=== PATIENT | female | born 1985 | race Caucasian/White ===

== ENCOUNTER 2019-06-13 17:08 | Emergency (ER) | payer OTHER ==
[~2019-06-13] VITALS: Ht 172.7 cm; Wt 113.4 kg
[~2019-06-13 17:08] MED LIST: ALBUTEROL INH; AMERICAINE VAG; ATIVAN0.5 MG PO; AZITHROMYCIN 2250 MG PO; BACTRIM DS TAB1 EACH PO; BENADRYL25 MG PO; CIPRO250 M1 PO; CIPROFLOXACIN500 M1 PO; CLEOCIN HCL150 MG PO; COMPAZINE10 MG; DIAZEPAM 10 MG10 M1 PO; DOXYCYCLINE 10100 MG PO; ELAVIL; ERY-TAB333 MG PO; FLONASE16 GM NS; HYDROCODONE-AP1 EAC6 PO; HYDROCODONE-APA15 ML PO; IBUPROFEN; IBUPROFEN 800800 M1 PO; IBUPROFEN 800800 MG PO; INDAPAMIDE2.5 MG PO; IRON159 MG; KEFLEX500 MG PO; LATUDA40 MG PO; LISINOPRIL10 MG PO; LORATIDINE 10 M10 M1 PO; MACROBID 100 M100 M1 PO; MEDROL DOSPAK21 TAB PO; MS CONTIN15 MG; NEURONTIN 300300 M1; NOHOMEMEDICATIONS; NORCO 5-325 TA1 EACH PO; NORFLEX100 MG PO; OXTELLAR XR600 MG PO; OXYCODONE HCL E10 MG; PERCOCET 10-321 EACH PO; PHENERGAN 25 MG25 M1; PHENERGAN-CODE120 ML PO; PRENATAL; PROMS25 WY RECTAL; PROVENTIL HFA6.7 G1 INH; PROVENTIL17 G1 IH; RISPERDAL 1 MG T1 MG PO; ROBAXIN 750 MG750 M1 PO; TERAZOL 320 GM VAG; TESSALON200 MG PO; TRAMADOL 50 MG50 MG PO; TUSSIONEX PENN473 ML PO; UNKNOWN BP MED; VISTARIL 25 MG25 M1 PO; WELLBUTRIN SR150 MG PO; ZANAFLEX4 M2; ZOLOFT; ZPAK PO
[2019-06-13] MEDS ORDERED: OXYBUTYNIN 5 MG5 M2 PO (17:39)
[2019-06-13] MEDS ORDERED: ZANAFLEX4 MG PO (17:39)
[2019-06-13] MEDS ORDERED: VICODIN 5-3001 EACH PO (17:39)
[2019-06-13] MEDS ORDERED: ALDACTONE100 MG PO (17:40)
[2019-06-13] MEDS ORDERED: CIPRODEX OTIC7.5 ML OTIC (18:29)
[2019-06-13] MEDS ORDERED: CLEOCIN HCL300 MG PO (18:29)
[2019-06-13 18:37] VITALS: BP 162/99
== END 2019-06-13 18:41 | disposition home or self-care (01) ==
LOC: M.ERS 17:08
DX: H66.91 Otitis media, unspecified, right ear (principal); H60.91 Unspecified otitis externa, right ear; J45.909 Unspecified asthma, uncomplicated; I10 Essential (primary) hypertension; F31.9 Bipolar disorder, unspecified; F17.210 Nicotine dependence, cigarettes, uncomplicated; Z98.51 Tubal ligation status; Z88.0 Allergy status to penicillin; Z88.1 Allergy status to other antibiotic agents

== ENCOUNTER 2019-07-03 21:55 | Emergency (ER) | payer OTHER ==
[~2019-07-03] VITALS: Ht 172.7 cm; Wt 113.8 kg
[~2019-07-03 21:55] MED LIST changes: +ALDACTONE100 MG PO; +CIPRODEX OTIC7.5 ML OTIC; +CLEOCIN HCL300 MG PO; +OXYBUTYNIN 5 MG5 M2 PO; +VICODIN 5-3001 EACH PO; +ZANAFLEX4 MG PO
[2019-07-03] MEDS ORDERED: SKLICE117 GM TOP (22:33)
[2019-07-03] MEDS ORDERED: NIX59 ML TOP (22:40)
[2019-07-03 22:49] VITALS: BP 138/87
== END 2019-07-03 22:50 | disposition home or self-care (01) ==
LOC: M.ERS 21:55
DX: B85.0 Pediculosis due to Pediculus humanus capitis (principal); I10 Essential (primary) hypertension; J45.909 Unspecified asthma, uncomplicated; F31.9 Bipolar disorder, unspecified; F17.210 Nicotine dependence, cigarettes, uncomplicated; Z98.2 Presence of cerebrospinal fluid drainage device; Z86.011 Personal history of benign neoplasm of the brain; Z88.0 Allergy status to penicillin; Z88.1 Allergy status to other antibiotic agents

== ENCOUNTER 2019-08-03 19:04 | Emergency (ER) | payer OTHER ==
[~2019-08-03] VITALS: Ht 172.7 cm; Wt 113.4 kg
[~2019-08-03 19:04] MED LIST changes: +NIX59 ML TOP; +SKLICE117 GM TOP
[2019-08-03] MEDS ORDERED: AZITHROMYCIN 2250 MG PO (20:05)
[2019-08-03] MEDS ORDERED: PREDNISONE 20 M20 MG PO (20:05)
[2019-08-03] MEDS ORDERED: PROAIR HFA8.5 GM INH (20:05)
[2019-08-03 21:10] VITALS: BP 116/59
== END 2019-08-03 21:11 | disposition home or self-care (01) ==
LOC: M.ERS 19:04
DX: J45.901 Unspecified asthma with (acute) exacerbation (principal); R51 Headache; G93.2 Benign intracranial hypertension; I10 Essential (primary) hypertension; F31.9 Bipolar disorder, unspecified; F17.210 Nicotine dependence, cigarettes, uncomplicated; Z98.51 Tubal ligation status; Z88.0 Allergy status to penicillin; Z88.1 Allergy status to other antibiotic agents

== ENCOUNTER 2020-01-19 22:47 | Emergency (ER) | payer OTHER ==
[~2020-01-19] VITALS: Ht 172.7 cm; Wt 113.4 kg
[~2020-01-19 22:47] MED LIST changes: +PREDNISONE 20 M20 MG PO; +PROAIR HFA8.5 GM INH
[2020-01-20 00:17] LABS: INFLUENZA A ANTIGEN Negative (Negative); INFLUENZA B ANTIGEN Negative (Negative)
[2020-01-20 00:40] VITALS: BP 163/84
== END 2020-01-20 00:40 | disposition home or self-care (01) ==
LOC: M.ERS 22:47
PROVIDERS: Emergency Medicine Emergency Medical Services
DX: J06.9 Acute upper respiratory infection, unspecified (principal); F17.210 Nicotine dependence, cigarettes, uncomplicated; I10 Essential (primary) hypertension; F31.9 Bipolar disorder, unspecified; J45.909 Unspecified asthma, uncomplicated; Z98.51 Tubal ligation status; Z88.0 Allergy status to penicillin; Z88.1 Allergy status to other antibiotic agents; Z79.899 Other long term (current) drug therapy

== ENCOUNTER 2020-08-29 20:06 | Emergency (ER) | payer OTHER ==
[~2020-08-29] VITALS: Ht 172.7 cm; Wt 108.9 kg
[2020-08-29] MEDS ORDERED: DULOXETINE HCL20 MG PO (20:14)
[2020-08-29 22:37] VITALS: BP 132/70
== END 2020-08-29 22:37 | disposition home or self-care (01) ==
LOC: M.ERS 20:06
DX: S00.12XA Contusion of left eyelid and periocular area, initial encounter (principal); S40.022A Contusion of left upper arm, initial encounter; S40.021A Contusion of right upper arm, initial encounter; S40.011A Contusion of right shoulder, initial encounter; J45.909 Unspecified asthma, uncomplicated; I10 Essential (primary) hypertension; F17.210 Nicotine dependence, cigarettes, uncomplicated; Z88.0 Allergy status to penicillin; Z88.1 Allergy status to other antibiotic agents; Z98.51 Tubal ligation status; Y08.89XA Assault by other specified means, initial encounter; Y93.89 Activity, other specified; Y92.89 Other specified places as the place of occurrence of the external cause; Y99.8 Other external cause status

== ENCOUNTER 2020-09-06 00:47 | Emergency (ER) | payer OTHER ==
[~2020-09-06] VITALS: Ht 172.7 cm; Wt 140.2 kg
[~2020-09-06 00:47] MED LIST changes: +DULOXETINE HCL20 MG PO
[2020-09-06] MEDS ORDERED: HYDROCODON-ACE1 EA11 PO (00:59)
[2020-09-06 01:16] LABS: ABSOLUTE BASOPHILS 0.1 thou/uL (0.0-0.2); ABSOLUTE EOSINOPHILS 0.2 thou/uL (0.0-0.7); ABSOLUTE LYMPHOCYTES 1.7 thou/uL (0.8-5.3); ABSOLUTE MONOCYTES 0.4 thou/uL (0.0-1.2); ABSOLUTE NEUTROPHILS 4.7 thou/uL (1.6-8.1); BASOPHILS 0.8 %; EOSINOPHILS 2.6 %; HEMATOCRIT 23.2 % (37.0-47.0); HEMOGLOBIN 7.1 gm/dL (12.0-15.0); LYMPHOCYTES 24.4 %; MCH 17.7 pg (26.0-34.0); MCHC 30.4 g/dL (28.0-37.0); MCV 58.2 fL (80.0-100.0); MONOCYTES 5.9 %; MPV 8.1 fl. (7.2-11.1); NUCLEATED RBCS 0 /100WBC; PLATELET COUNT* 343 thou/uL (150-400); POLYS 66.3 %; RBC 3.99 mil/uL (4.20-5.00); RDW-CV 19.2 % (10.5-14.5); WBC 7.1 thou/uL (4.0-11.0)
[2020-09-06 01:24] LABS: CALCIUM 8.4 mg/dL (8.5-10.1); CREATININE 0.9 mg/dL (0.6-1.3); POTASSIUM 3.4 mmol/L (3.5-5.1)
[2020-09-06 01:29] LABS: TOTAL BILIRUBIN 0.1 mg/dL (<0.1-1.0); TOTAL PROTEIN 6.7 g/dL (6.4-8.2)
[2020-09-06] MEDS ORDERED: LEVAQUIN 500 M500 MG PO (02:13)
[2020-09-06 02:23] VITALS: BP 148/79
[2020-09-06 03:28] LABS: ANISOCYTOSIS 1+; HYPOCHROMASIA 2+; MICROCYTES 3+; PLATELET ESTIMATE ADEQUATE
== END 2020-09-06 02:23 | disposition home or self-care (01) ==
LOC: M.ERS 00:47
PROVIDERS: Family Medicine
DX: S00.93XA Contusion of unspecified part of head, initial encounter (principal); D64.9 Anemia, unspecified; H70.92 Unspecified mastoiditis, left ear; I10 Essential (primary) hypertension; J45.909 Unspecified asthma, uncomplicated; F17.210 Nicotine dependence, cigarettes, uncomplicated; Z79.899 Other long term (current) drug therapy; Z88.0 Allergy status to penicillin; Z88.1 Allergy status to other antibiotic agents; Y08.89XA Assault by other specified means, initial encounter; Y93.89 Activity, other specified; Y92.89 Other specified places as the place of occurrence of the external cause; Y99.8 Other external cause status

== ENCOUNTER 2020-09-18 19:26 | Inpatient (IN) | payer OTHER ==
[~2020-09-18] VITALS: Ht 172.7 cm; Wt 113.4 kg
--- NOTE | ~2020-09-18 | EMS ---
[facility] [address] [place] [address] EMS Patient Care Report Name: STEPHANIE LONGO Room: [facility]#: [id number] Admission: 09/18/20 Attend Phys: Discharge: Date of : 81 Report #: [id number] THIS REPORT FOR: //name// Report Transmitted: 09/18/2020 19:39 EMS Care Summary [place] [facility] Incident 20-0911 @ 09/18/2020 18:40 Incident Location [address] [place] [address] Patient STEPHANIE LONGO Female, 34 Years 1985 Patient Address [address] [place] [address] Patient History Asthma, Patient Allergies No known allergies, Patient Medications Albuterol, Chief Complaint SOB Disposition Transported No Lights/[facility] [place] [facility] Reason Breathing Problem Transported To [facility] Narrative Dispatched for 34y/o female with SOB. Upon arrival pt. was sitting upright, acting anxious, and speaking in full sentences. [place] [address] EMS Patient Care Report Name: STEPHANIE LONGO Room: [facility]#: [id number] Admission: 09/18/20 Attend Phys: Discharge: Date of : 81 Report #: [id number] of asthma and has had SOB for the past 4 days with little relief from her MDI. Pt. requested to be transported to a hospital. Pt. had expiratory wheezes in all marquis. En route Pt. stated that the Duoneb gave her some relief. Pt. was transported to [facility] for emergency and respiratory services. Initial Vitals @19:10P: 100,R: 24,BP: 136/88,SpO2: 100, @18:55P: 110,R: 24,BP: 128/86,Pain: 0/10,GCS: 15,SpO2: 98,Revised Trauma: 12, Assessments @18:50MENTAL:No Abnormalities,SKIN:No Abnormalities,HEENT:Head/Face: No Abnormalities,Eyes: No Abnormalities,Neck/Airway: No Abnormalities,LUNG SOUNDS:General: No Abnormalities,Left Upper: No Abnormalities,Right Upper: No Abnormalities,Left Lower: No Abnormalities,Right Lower: No Abnormalities,ABDOMEN:General: No Abnormalities,Left Upper: No Abnormalities,Right Upper: No Abnormalities,Left Lower: No Abnormalities,Right Lower: No Abnormalities,PELVIS//GI:EXTREMITIES:Left Arm: No Abnormalities,Right Arm: No Abnormalities,Left Leg: No Abnormalities,Right Leg: No Abnormalities,PULSE:NEURO:No Abnormalities, Impression Asthma Procedures @19:00Oxygen FlowRate: 6 Device: Nebulizer Response: ImprovedSucceeded@19:00Duoneb - 3.5 Milligrams (mg) - Non-Rebreather MaskResponse: Improved Timeline 18:40,Call Received 18:40,Dispatched 18:41,En Route 18:46,Initial Responder On Scene 18:46,On Scene 18:50,At Patient 18:55,BP: 128/86 M,PULSE: 110,RR: 24 R,SPO2: 98 Ox,ETCO2: ,BG: ,PAIN: 0,GCS: 15, 18:57,Depart Scene 19:00,Oxygen FlowRate: 6 Device: Nebulizer Response: ImprovedSucceeded, 19:00,Duoneb - 3.5 Milligrams (mg) - Non-Rebreather Mask,Response: Improved 19:10,BP: 136/88 M,PULSE: 100,RR: 24 R,SPO2: 100 Ox,ETCO2: ,BG: ,PAIN: ,GCS: , 19:23,At Destination 19:25,Transfer Patient 19:57,Call Closed 19:57,[place] [address] EMS Patient Care Report Name: STEPHANIE LONGO CHRIST Room: [facility]#: [id number] Admission: 09/18/20 Attend Phys: Discharge: Date of : 81 Report #: [id number] Disclaimer v1.1 Copyright 2020 [employer] This EMS Care Summary contains data elements from the applicable legal record (which may be displayed differently). It is designed to provide pertinent information for the following purposes: continuity of care, clinical quality, and state data reporting. The complete legal record is available to ED staff and administrators of the receiving hospital in [employer] Patient Tracker. All data is provided "as is."
[~2020-09-18 19:26] MED LIST changes: +HYDROCODON-ACE1 EAC8 PO; +LEVAQUIN 500 M500 MG PO; -NEURONTIN 300300 M1; +NEURONTIN 300M300 M2 PO
[2020-09-18 19:30] VITALS: BP 198/99
[2020-09-18 19:56] LABS: ABSOLUTE LYMPHOCYTES 1.4 thou/uL (0.8-5.3); ABSOLUTE MONOCYTES 0.8 thou/uL (0.0-1.2); ABSOLUTE NEUTROPHILS 11.9 thou/uL (1.6-8.1); BASOPHILS 0.3 %; HEMATOCRIT 25.5 % (37.0-47.0); HEMOGLOBIN 7.7 gm/dL (12.0-15.0); LYMPHOCYTES 9.8 %; MCH 17.6 pg (26.0-34.0); MCHC 30.1 g/dL (28.0-37.0); MCV 58.5 fL (80.0-100.0); MONOCYTES 5.6 %; MPV 6.6 fl. (7.2-11.1); NUCLEATED RBCS 0 /100WBC; PLATELET COUNT* 451 thou/uL (150-400); POLYS 84.3 %; RBC 4.36 mil/uL (4.20-5.00); RDW-CV 20.2 % (10.5-14.5); WBC 14.1 thou/uL (4.0-11.0)
[2020-09-18 20:07] LABS: POTASSIUM 3.6 mmol/L (3.5-5.1)
[2020-09-18 20:11] LABS: ALBUMIN 3.5 g/dL (3.4-5.0); MAGNESIUM 2.2 mg/dL (1.8-2.4); TOTAL BILIRUBIN 0.2 mg/dL (<0.1-1.0); TOTAL PROTEIN 7.9 g/dL (6.4-8.2)
[2020-09-18 20:36] LABS: ANISOCYTOSIS 2+; HYPOCHROMASIA 3+; OVALOCYTES 1+; PLATELET ESTIMATE INCREASED
[2020-09-18 20:37] LABS: MACROCYTES Occasional; MICROCYTES 1+
[2020-09-19] VITALS: BP 131/82
[2020-09-19 00:30] VITALS: BP 147/55
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
[2020-09-19 09:00] VITALS: BP 140/67
[2020-09-19 09:30] LABS: AMP/METHAMP Negative (Negative); BARBITURATES Negative (Negative); BENZODIAZEPINES POSITIVE (Negative); COCAINE Negative (Negative); METHADONE Negative (Negative); OPIATES POSITIVE (Negative); PCP Negative (Negative); THC Negative (Negative)
--- NOTE | 2020-09-19 11:33 | EKG ---
[place] [address] ELECTROCARDIOGRAM REPORT Name: STEPHANIE LONGO CHRIST Room: [address] ADM IN M.R.#: [id number] Admission: 09/18/20 Attend Phys: Elton Hendricks, Discharge: Date of : 81 Date of Service: 09/18/201945 Report #: [id number] THIS REPORT FOR: //name// [facility] ED Test Date: 2020-09-18 Test Time: 19:46:14 Pat Name: STEPHANIE LONGO Department: Room: [facility] Gender: F Universal Grinder Operator: FRANKY : 1985 Requested By: Joesph Canales Order Number: [id number] MD: Agustin Hewitt Measurements Intervals [place] Rate: 103 P: 52 PA: 152 QRS: 18 QRSD: 99 T: 46 QT: 387 QTc: 507 Interpretive Statements Sinus tachycardia Consider right atrial enlargement Abnormal inferior Q waves Borderline repolarization abnormality Borderline prolonged QT interval Compared to ECG 09/21/2016 09:35:59 Sinus rhythm no longer present Electronically Signed On 09-19-2020 11:33:13 GLASS SCIENCE ENGINEER by Agustin Hewitt [email or web address] <ELECTRONICALLY SIGNED> By: Agustin Hewitt MD, FAC 09/19/20 1133 45 45 Agustin Hewitt MD, [facility] /EPI
[2020-09-19 15:55] VITALS: BP 128/67
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
[2020-09-20 02:06] LABS: GLYCOHEMOGLOBIN (HGB A1C) 6.2 % (4.8-5.6)
[2020-09-20 03:44] VITALS: BP 138/72
[2020-09-20 04:59] LABS: HEMATOCRIT 24.3 % (37.0-47.0); HEMOGLOBIN 7.2 gm/dL (12.0-15.0); MCH 17.5 pg (26.0-34.0); MCHC 29.5 g/dL (28.0-37.0); MCV 59.3 fL (80.0-100.0); MPV 8.2 fl. (7.2-11.1); RBC 4.09 mil/uL (4.20-5.00); WBC 14.3 thou/uL (4.0-11.0)
[2020-09-20 05:19] LABS: ALBUMIN 3.4 g/dL (3.4-5.0); CREATININE 0.9 mg/dL (0.6-1.3); MAGNESIUM 2.2 mg/dL (1.8-2.4); POTASSIUM 4.3 mmol/L (3.5-5.1); TOTAL BILIRUBIN 0.2 mg/dL (<0.1-1.0); TOTAL PROTEIN 7.5 g/dL (6.4-8.2)
--- NOTE | 2020-09-20 07:40 | NUR ---
PATIENT SLEPT PART OF THE NIGHT. PATIENT WAS GIVEN PRN PAIN MEDICINE ONCE. NEW IV WAS PLACED AND REMAINS SALINE LOCKED. PATIENT REFUSING IV FLUIDS. WILL CONTINUE TO MONITOR.
[2020-09-20 08:30] VITALS: BP 117/51
--- NOTE | 2020-09-20 14:00 | NUR ---
NOTIFIED BY INSURANCE THAT PT.OUT OF NETWORK FOR HER INSURANCE PLAN. THEY RECOMMEND TRANSFER TO AN [facility] FACILITY. NOTIFIED . SHE SAID PT.WILL MOST LIKELY DISCHARGE TOMORROW. BENNY CARR PUT IN A CALL TO INSURANCE CO-[facility] TO INFORM. ORDER RECEIVED FROM FOR [facility]. ATTEMPTING TO ORDER THROUGH [employer]. FAXED ORDER,CARE NOTE AND FACE SHEET TO [facility].
[2020-09-20 16:00] VITALS: BP 126/68
--- NOTE | 2020-09-20 19:52 | NUR ---
PATIENT RESTING IN BED. PATIENT IS UP AD CHEKO IN ROOM. PATIENT HAD IV INFILTRATE THIS AM AND AGAIN THIS EVENING, DELAYING FLUID/IRON INFUSIONS. PATIENT HAS HAD COMPLAINTS OF PAIN AND ANXIETY TREATED ADEQUATELY WITH MEDICATION AND CONVERSATION. PATIENT HAS GOOD APPETITE. PATIENT DENIES ANY NEEDS AT THIS TIME. CALL LIGHT WITHIN REACH.
[2020-09-20 20:00] VITALS: BP 147/64
[2020-09-21 03:52] LABS: HEMOGLOBIN 7.1 gm/dL (12.0-15.0); MCH 17.7 pg (26.0-34.0); MCHC 29.6 g/dL (28.0-37.0); MCV 59.7 fL (80.0-100.0); MPV 6.7 fl. (7.2-11.1); RBC 4.02 mil/uL (4.20-5.00); RDW-CV 20.3 % (10.5-14.5); WBC 12.5 thou/uL (4.0-11.0)
[2020-09-21 04:11] LABS: ALBUMIN 3.2 g/dL (3.4-5.0); CALCIUM 8.7 mg/dL (8.5-10.1); MAGNESIUM 2.1 mg/dL (1.8-2.4); POTASSIUM 4.2 mmol/L (3.5-5.1); TOTAL BILIRUBIN 0.1 mg/dL (<0.1-1.0)
--- NOTE | 2020-09-21 05:06 | NUR ---
ASSESSMENT: PT REMAIN ALERT AND ORIENT TIMES FOUR. UP AD CHEKO. VSS, AFEBRILE. IV ACCESS NOT AVAILABLE AT SHIFT CHANGE. ONCE IV ACCESS WAS OBTAINED, IV IRON WAS GIVEN. PT HAS A LEFT HAND 20G IV. PT IS VERY ANXIOUS AT TIMES. BLOOD SUGAR WAS 243. PT LATER ORDERED FOOD DELIVERY POST RECEIVING 20 UNITS OF LANTUS. PRODUCTIVE COUGH, BROWNISH SPUTUM NOTED. SLOW PROGRESS TOWARDS DC GOALS. WILL CONTINUE TO MONITOR.
[2020-09-21] MEDS ORDERED: ZANAFLEX4 MG PO (07:45)
[2020-09-21] MEDS ORDERED: GLUCOPHAGE500 MG PO (07:45)
[2020-09-21] MEDS ORDERED: IRON160 M1 PO (07:45)
[2020-09-21] MEDS ORDERED: PREDNISONE 10 M10 MG PO (07:45)
[2020-09-21] MEDS ORDERED: VIBRAMYCIN 100100 MG PO (07:45)
[2020-09-21] MEDS ORDERED: IPRAT-ALBUT 0.5-3 ML INH (07:45)
[2020-09-21] MEDS ORDERED: HYDROCODON-ACE1 EAC8 PO (07:53)
[2020-09-21] MEDS ORDERED: CIPROFLOXIN HC2.5 M1 OTIC (07:53)
[2020-09-21] MEDS ORDERED: NEURONTIN 300M300 M2 PO (07:53)
[2020-09-21] MEDS ORDERED: ALDACTONE100 MG PO (07:53)
[2020-09-21] MEDS ORDERED: DIAZEPAM 10 MG10 M1 PO (07:53)
[2020-09-21] MEDS ORDERED: OXYBUTYNIN 5 MG5 M2 PO (07:53)
[2020-09-21] MEDS ORDERED: IBUPROFEN 800800 M1 PO (07:53)
[2020-09-21 08:00] VITALS: BP 106/55
[2020-09-21 09:26] VITALS: BP 106/55
--- NOTE | 2020-09-21 11:43 | NUR ---
PT.TO DISCHARGE HOME TODAY. PT.CRYING BECAUSE HER HAD CARTWRIGHT SENT TO HER TO THE HOSPITAL. THEY WERE DELIVERED TO ROOM WHERE SHE WAS WHEN SHE FIRST CAME INTO HOSP[facility]. THEY ARE NOW IN A COVID + PTS ROOM AND CANNOT BE BROUGHT OUT. BETH/PT.EXPERIENCE REP WORKING WITH PT. ON THIS. KYLIE WILL DELIVER NEBULIZER TO PT ROOM IN 1-2 HRS. FAXED SCRIPTS TO [facility] [phone] TOLD THEM [facility] WILL PAY COPAYS, PT.HAS PRESCRIPTIONS.
[2020-09-21 12:51] VITALS: BP 106/55
--- NOTE | 2020-09-21 17:00 | NUR ---
PT.SAID SHE NEEDED CAB VOUCHER. PROVIDED VOUCHER AND CALLED 08/25 TAXI. THEY WILL CALL WHEN THEY ARRIVE TO HOSPITAL. PT.CALLED OUT AND SAID HER WAS HERE TO TAKE HER HOME. SHE WAS AGREEABLE TO GO WITH HIM. [facility]I CANCELLED. PRODUCER DIRECTOR SAID HE CAME AT SAME TIME PTS RIDE.
--- NOTE | 2020-09-21 17:25 | NUR ---
PT GIVEN DISCHARGE INFORMATION, NEBULIZER DELIVERED. IV REMOVED. PT BLEONGINGS GATHERED. PT LEFT VIA WHEELCHAIR WITH NURSING STAFF TO HOME WITH HOME HEALTH. FALL RISK PRECAUTIONS IN PLACE. HOURLY ROUNDING COMPLETED.
== END 2020-09-21 17:38 | disposition home or self-care (01) | DRG 177 ==
LOC: M.ERS 19:26 → M.TBA-ER 22:57 → M.ORTHSURG 22:57 → M.3W 09-19 21:09
PROVIDERS: Emergency Medicine Emergency Medical Services; Internal Medicine; ADMIT Internal Medicine; ATTEND Internal Medicine
DX: J15.6 Pneumonia due to other Gram-negative bacteria (principal); J96.01 Acute respiratory failure with hypoxia; R65.11 Systemic inflammatory response syndrome (SIRS) of non-infectious origin with acute organ dysfunction; J45.901 Unspecified asthma with (acute) exacerbation; J45.909 Unspecified asthma, uncomplicated; I10 Essential (primary) hypertension; F31.9 Bipolar disorder, unspecified; F41.9 Anxiety disorder, unspecified; R73.9 Hyperglycemia, unspecified; D50.9 Iron deficiency anemia, unspecified; Z20.828 Contact with and (suspected) exposure to other viral communicable diseases; Z88.0 Allergy status to penicillin; Z88.8 Allergy status to other drugs, medicaments and biological substances; Z79.899 Other long term (current) drug therapy

== ENCOUNTER 2020-09-26 19:56 | Emergency (ER) | payer OTHER ==
[~2020-09-26] VITALS: Ht 172.7 cm; Wt 116.1 kg
[~2020-09-26 19:56] MED LIST changes: +CIPROFLOXIN HC2.5 M1 OTIC; +GLUCOPHAGE500 MG PO; +IPRAT-ALBUT 0.5-3 ML INH; +IRON160 M1 PO; +PREDNISONE 10 M10 MG PO; +VIBRAMYCIN 100100 MG PO
[2020-09-26 21:09] LABS: URINE BILIRUBIN NEGATIVE (Negative); URINE BLOOD 3+ (Negative); URINE CLARITY CLEAR; URINE COLOR YELLOW; URINE GLUCOSE-RANDOM NEGATIVE (Negative); URINE KETONES NEGATIVE (Negative); URINE LEUKOCYTES-REFLEX NEGATIVE (Negative); URINE NITRITE-REFLEX NEGATIVE (Negative); URINE PROTEIN TRACE (Negative); URINE SPECIFIC GRAVITY <= 1.005 (1.005-1.030); URINE UROBILINOGEN 0.2 E.U./dl (0.2-1.0)
[2020-09-26 21:18] LABS: AMP/METHAMP Negative (Negative); BARBITURATES Negative (Negative); BENZODIAZEPINES POSITIVE (Negative); COCAINE Negative (Negative); METHADONE Negative (Negative); OPIATES POSITIVE (Negative); PCP Negative (Negative); THC Negative (Negative)
[2020-09-26 21:19] LABS: ABSOLUTE BASOPHILS 0.1 thou/uL (0.0-0.2); ABSOLUTE LYMPHOCYTES 2.1 thou/uL (0.8-5.3); ABSOLUTE MONOCYTES 0.6 thou/uL (0.0-1.2); ABSOLUTE NEUTROPHILS 12.3 thou/uL (1.6-8.1); EOSINOPHILS 0.3 %; HEMATOCRIT 33.4 % (37.0-47.0); HEMOGLOBIN 10.1 gm/dL (12.0-15.0); LYMPHOCYTES 13.6 %; MCH 18.4 pg (26.0-34.0); MCHC 30.3 g/dL (28.0-37.0); MCV 60.6 fL (80.0-100.0); MONOCYTES 3.8 %; MPV 8.1 fl. (7.2-11.1); NUCLEATED RBCS 0 /100WBC; PLATELET COUNT* 538 thou/uL (150-400); POLYS 81.3 %; RBC 5.52 mil/uL (4.20-5.00); RDW-CV 20.2 % (10.5-14.5); WBC 15.1 thou/uL (4.0-11.0)
[2020-09-26 21:23] LABS: BACTERIA-REFLEX 1-9 Few /HPF (None Seen); CASTS None Seen /LPF (None Seen); CRYSTALS None Seen /LPF (None Seen); MUCUS 0-3 Light strn/LPF (None Seen); SQUAMOUS 0-3 Few /LPF (0-3); URINE WBC-REFLEX None Seen /HPF (0-5)
[2020-09-26 21:26] LABS: CALCIUM 9.3 mg/dL (8.5-10.1); CREATININE 0.9 mg/dL (0.6-1.3); POTASSIUM 3.8 mmol/L (3.5-5.1)
[2020-09-26 21:31] LABS: MAGNESIUM 2.1 mg/dL (1.8-2.4); TOTAL BILIRUBIN 0.4 mg/dL (<0.1-1.0); TOTAL PROTEIN 8.3 g/dL (6.4-8.2)
[2020-09-26 22:06] LABS: ANISOCYTOSIS 1+; HYPOCHROMASIA 2+; MICROCYTES 2+; POIKILOCYTOSIS 1+
[2020-09-26 22:07] LABS: SCHISTOCYTES Occasional
[2020-09-26 22:08] LABS: OVALOCYTES 1+; TEARDROPS Occasional
[2020-09-26 22:09] LABS: MACROCYTES Occasional
[2020-09-26 22:30] LABS: BE 1.9 mmol/L (-2 to +3); PCO2 38.9 mmHg (35.0-45.0); PO2 76.2 mmHg (75.0-100.0); pH 7.444 (7.340-7.450)
[2020-09-26 22:54] LABS: INFLUENZA A ANTIGEN Negative (Negative); INFLUENZA B ANTIGEN Negative (Negative)
[2020-09-27 02:10] VITALS: BP 135/67
--- NOTE | 2020-09-27 16:28 | EKG ---
[place] [address] ELECTROCARDIOGRAM REPORT Name: DONTASTEPHANIE CHRIST Room: [facility]#: [id number] Admission: 09/26/20 Attend Phys: Discharge: 09/27/20 Date of : 81 Date of Service: 09/26/202146 Report #: [id number] THIS REPORT FOR: //name// [facility] ED Test Date: 2020-09-26 Test Time: 21:47:16 Pat Name: STEPHANIE LONGO Department: Room: Gender: F Legal Assistant: : 1985 Requested By: Barbara Saucedo Order Number: [id number] MD: Xavier Jimenes Measurements Intervals [place] Rate: 99 P: -11 VT: 149 QRS: -3 QRSD: 92 T: 135 QT: 354 QTc: 455 Interpretive Statements Sinus rhythm Abnormal T, consider ischemia, lateral leads Compared to ECG 09/18/2020 19:46:14 T-wave abnormality now present Possible ischemia now present Sinus tachycardia no longer present Inferior Q waves no longer present Electronically Signed On 09-27-2020 16:27:44 X RAY ELECTRONICS WIRING TECHNICIAN by Xavier Jimenes [email or web address] <ELECTRONICALLY SIGNED> By: Xavier Jimenes MD, [facility] 09/27/20 1627 46 46 Xavier Jimenes MD, [facility] /EPI
== END 2020-09-27 02:10 | disposition home or self-care (01) ==
LOC: M.ERS 19:56
PROVIDERS: Nurse Practitioner Family; Personal Emergency Response Attendant
DX: J18.9 Pneumonia, unspecified organism (principal); M79.18 Myalgia, other site; J45.909 Unspecified asthma, uncomplicated; I10 Essential (primary) hypertension; F17.210 Nicotine dependence, cigarettes, uncomplicated; Z88.0 Allergy status to penicillin; Z88.1 Allergy status to other antibiotic agents; Z98.51 Tubal ligation status; Z20.828 Contact with and (suspected) exposure to other viral communicable diseases; Z79.899 Other long term (current) drug therapy

== ENCOUNTER 2021-03-28 01:15 | Emergency (ER) | payer OTHER ==
[~2021-03-28] VITALS: Ht 172.7 cm; Wt 117.9 kg
[2021-03-28] MEDS ORDERED: ELIQUIS5 M1 PO (01:33)
[2021-03-28] MEDS ORDERED: PROTONIX40 M3 PO (01:41)
[2021-03-28] MEDS ORDERED: DRIZALMA SPRINK60 MG PO (01:42)
[2021-03-28] MEDS ORDERED: INDAPAMIDE2.5 MG PO (01:42)
[2021-03-28] MEDS ORDERED: BUPROPION XL300 MG PO (01:42)
[2021-03-28 02:15] LABS: ABSOLUTE EOSINOPHILS 0.1 thou/uL (0.0-0.7); ABSOLUTE LYMPHOCYTES 1.8 thou/uL (0.8-5.3); ABSOLUTE MONOCYTES 0.4 thou/uL (0.0-1.2); ABSOLUTE NEUTROPHILS 5.8 thou/uL (1.6-8.1); BASOPHILS 0.6 %; EOSINOPHILS 1.7 %; HEMATOCRIT 32.3 % (37.0-47.0); HEMOGLOBIN 10.8 gm/dL (12.0-15.0); LYMPHOCYTES 22.3 %; MCH 26.6 pg (26.0-34.0); MCHC 33.5 g/dL (28.0-37.0); MCV 79.5 fL (80.0-100.0); MONOCYTES 5.2 %; NUCLEATED RBCS 0 /100WBC; PLATELET COUNT* 332 thou/uL (150-400); POLYS 70.2 %; RBC 4.06 mil/uL (4.20-5.00); RDW-CV 15.4 % (10.5-14.5); WBC 8.3 thou/uL (4.0-11.0)
[2021-03-28 02:23] LABS: POTASSIUM 3.9 mmol/L (3.5-5.1)
[2021-03-28 02:27] LABS: APTT 29.1 Seconds (25.0-31.3); PROTIME 10.6 Seconds (9.20-11.50)
[2021-03-28 02:28] LABS: ALBUMIN 3.4 g/dL (3.4-5.0); TOTAL BILIRUBIN 0.2 mg/dL (<0.1-1.0); TOTAL PROTEIN 7.4 g/dL (6.4-8.2)
[2021-03-28 04:00] VITALS: BP 130/80
== END 2021-03-28 04:00 | disposition home or self-care (01) ==
LOC: M.ERS 01:15
PROVIDERS: Personal Emergency Response Attendant
DX: J42 Unspecified chronic bronchitis (principal); R06.02 Shortness of breath; I10 Essential (primary) hypertension; F17.210 Nicotine dependence, cigarettes, uncomplicated; Z88.1 Allergy status to other antibiotic agents; Z88.0 Allergy status to penicillin; Z79.899 Other long term (current) drug therapy; Z98.51 Tubal ligation status

== ENCOUNTER 2021-05-11 20:24 | Emergency (ER) | payer OTHER ==
[~2021-05-11] VITALS: Ht 172.7 cm; Wt 125.2 kg
[~2021-05-11 20:24] MED LIST changes: +BUPROPION XL300 MG PO; +DRIZALMA SPRINK60 MG PO; +ELIQUIS5 M1 PO; +PROTONIX40 M3 PO
[2021-05-11] MEDS ORDERED: ENDOCET 5-3251 EACH PO (22:21)
[2021-05-11 22:30] VITALS: BP 108/57
== END 2021-05-11 22:30 | disposition home or self-care (01) ==
LOC: M.ERS 20:24
DX: S06.0X0A Concussion without loss of consciousness, initial encounter (principal); S16.1XXA Strain of muscle, fascia and tendon at neck level, initial encounter; S20.212A Contusion of left front wall of thorax, initial encounter; Z88.0 Allergy status to penicillin; Z88.1 Allergy status to other antibiotic agents; J45.909 Unspecified asthma, uncomplicated; I10 Essential (primary) hypertension; Z86.711 Personal history of pulmonary embolism; Z98.51 Tubal ligation status; W18.39XA Other fall on same level, initial encounter; Y93.89 Activity, other specified; Y92.89 Other specified places as the place of occurrence of the external cause; Y99.8 Other external cause status

== ENCOUNTER 2021-05-14 18:59 | Emergency (ER) | payer OTHER ==
[~2021-05-14] VITALS: Ht 172.7 cm; Wt 127.0 kg
[~2021-05-14 18:59] MED LIST changes: +ENDOCET 5-3251 EACH PO
[2021-05-14 19:42] VITALS: BP 115/54
== END 2021-05-14 19:43 | disposition home or self-care (01) ==
LOC: M.ERS 18:59
DX: S39.012A Strain of muscle, fascia and tendon of lower back, initial encounter (principal); I10 Essential (primary) hypertension; J45.909 Unspecified asthma, uncomplicated; F17.210 Nicotine dependence, cigarettes, uncomplicated; Z86.711 Personal history of pulmonary embolism; Z98.51 Tubal ligation status; Z88.1 Allergy status to other antibiotic agents; Z88.0 Allergy status to penicillin; W18.39XA Other fall on same level, initial encounter; Y93.89 Activity, other specified; Y92.89 Other specified places as the place of occurrence of the external cause; Y99.8 Other external cause status

== ENCOUNTER 2021-08-23 21:08 | Emergency (ER) | payer OTHER ==
[~2021-08-23] VITALS: Ht 172.7 cm; Wt 122.5 kg
[2021-08-23 21:14] VITALS: BP 158/83
[2021-08-23] MEDS ORDERED: CLEOCIN HCL300 MG PO (21:49)
[2021-08-23] MEDS ORDERED: TRAMADOL 50 MG50 MG PO (21:49)
[2021-08-23] MEDS ORDERED: MUPIROCIN15 GM TOP (21:49)
[2021-08-23] MEDS ORDERED: CLINDAMYCIN 1%60 M1 TOP (21:49)
[2021-08-23] MEDS ORDERED: HIBICLENS118 ML TOP (21:49)
== END 2021-08-23 22:07 | disposition home or self-care (01) ==
LOC: M.ERS 21:08
DX: L30.9 Dermatitis, unspecified (principal); I10 Essential (primary) hypertension; J45.909 Unspecified asthma, uncomplicated; F31.9 Bipolar disorder, unspecified; F17.210 Nicotine dependence, cigarettes, uncomplicated; Z98.51 Tubal ligation status; Z86.711 Personal history of pulmonary embolism; Z79.899 Other long term (current) drug therapy; Z88.1 Allergy status to other antibiotic agents; Z88.0 Allergy status to penicillin

== ENCOUNTER 2021-09-11 14:46 | Emergency (ER) | payer OTHER ==
[~2021-09-11] VITALS: Ht 172.7 cm; Wt 122.5 kg
[~2021-09-11 14:46] MED LIST changes: +CLINDAMYCIN 1%60 M1 TOP; +HIBICLENS118 ML TOP; +MUPIROCIN15 GM TOP
[2021-09-11] MEDS ORDERED: FLEXERIL PO (15:54)
[2021-09-11] MEDS ORDERED: HYDROCODON-ACE1 EAC7 PO (15:54)
[2021-09-11 15:55] VITALS: BP 000/00
== END 2021-09-11 16:00 | disposition home or self-care (01) ==
LOC: M.ERS 14:46
DX: M54.31 Sciatica, right side (principal); J45.909 Unspecified asthma, uncomplicated; I10 Essential (primary) hypertension; F17.210 Nicotine dependence, cigarettes, uncomplicated; Z79.899 Other long term (current) drug therapy; Z88.1 Allergy status to other antibiotic agents; Z88.0 Allergy status to penicillin

== ENCOUNTER 2021-10-19 20:12 | Emergency (ER) | payer OTHER ==
[~2021-10-19] VITALS: Ht 172.7 cm; Wt 124.7 kg
[~2021-10-19 20:12] MED LIST changes: +FLEXERIL PO; +HYDROCODON-ACE1 EAC7 PO
[2021-10-19 20:56] LABS: ABSOLUTE EOSINOPHILS 0.2 thou/uL (0.0-0.7); ABSOLUTE LYMPHOCYTES 1.9 thou/uL (0.8-5.3); ABSOLUTE MONOCYTES 0.5 thou/uL (0.0-1.2); ABSOLUTE NEUTROPHILS 6.8 thou/uL (1.6-8.1); BASOPHILS 0.5 %; EOSINOPHILS 1.9 %; HEMATOCRIT 29.4 % (37.0-47.0); HEMOGLOBIN 9.5 gm/dL (12.0-15.0); MCH 22.9 pg (26.0-34.0); MCHC 32.4 g/dL (28.0-37.0); MCV 70.6 fL (80.0-100.0); MONOCYTES 5.7 %; MPV 6.5 fl. (7.2-11.1); NUCLEATED RBCS 0 /100WBC; PLATELET COUNT* 412 thou/uL (150-400); POLYS 71.9 %; RBC 4.16 mil/uL (4.20-5.00); RDW-CV 16.8 % (10.5-14.5); WBC 9.5 thou/uL (4.0-11.0)
[2021-10-19 21:02] LABS: URINE BILIRUBIN NEGATIVE (Negative); URINE BLOOD TRACE (Negative); URINE CLARITY CLEAR; URINE COLOR YELLOW; URINE GLUCOSE-RANDOM NEGATIVE (Negative); URINE KETONES NEGATIVE (Negative); URINE NITRITE-REFLEX NEGATIVE (Negative); URINE PROTEIN NEGATIVE (Negative); URINE SPECIFIC GRAVITY 1.025 (1.005-1.030); URINE UROBILINOGEN 0.2 E.U./dl (0.2-1.0)
[2021-10-19 21:10] LABS: CALCIUM 8.9 mg/dL (8.5-10.1); POTASSIUM 3.5 mmol/L (3.5-5.1)
[2021-10-19 21:10] LABS: URINE LEUKOCYTES-REFLEX 2+ (Negative)
[2021-10-19 21:11] LABS: SQUAMOUS 4-10 Moderate /LPF (0-3)
[2021-10-19 21:12] LABS: BACTERIA-REFLEX 1-9 Few /HPF (None Seen); CASTS None Seen /LPF (None Seen); CRYSTALS None Seen /LPF (None Seen); MUCUS 4-6 Moderate strn/LPF (None Seen); URINE RBC 3-10 Few /HPF (0-2); URINE WBC-REFLEX 6-15 Few /HPF (0-5)
[2021-10-19 21:14] LABS: ALBUMIN 3.2 g/dL (3.4-5.0); TOTAL BILIRUBIN 0.2 mg/dL (<0.1-1.0); TOTAL PROTEIN 7.5 g/dL (6.4-8.2)
[2021-10-19 23:37] LABS: PLATELET ESTIMATE ADEQUATE
[2021-10-20] LABS: POLYCHROMASIA 2+
[2021-10-20 00:01] LABS: HYPOCHROMASIA 2+; MICROCYTES 2+
[2021-10-20] MEDS ORDERED: DOXYCYCLINE 10100 MG PO (00:50)
[2021-10-20 01:44] VITALS: BP 140/76
== END 2021-10-20 01:44 | disposition home or self-care (01) ==
LOC: M.ERS 20:12
PROVIDERS: Nurse Practitioner Family
DX: N39.0 Urinary tract infection, site not specified (principal); R10.32 Left lower quadrant pain; J45.909 Unspecified asthma, uncomplicated; I10 Essential (primary) hypertension; F17.210 Nicotine dependence, cigarettes, uncomplicated; Z98.51 Tubal ligation status; Z79.899 Other long term (current) drug therapy; Z88.0 Allergy status to penicillin

== ENCOUNTER 2021-12-03 11:14 | Emergency (ER) | payer OTHER ==
[~2021-12-03] VITALS: Ht 172.7 cm; Wt 122.5 kg
[2021-12-03 12:01] LABS: ABSOLUTE BASOPHILS 0.1 thou/uL (0.0-0.2); ABSOLUTE EOSINOPHILS 0.1 thou/uL (0.0-0.7); ABSOLUTE LYMPHOCYTES 1.5 thou/uL (0.8-5.3); ABSOLUTE MONOCYTES 0.3 thou/uL (0.0-1.2); ABSOLUTE NEUTROPHILS 3.6 thou/uL (1.6-8.1); BASOPHILS 1.1 %; EOSINOPHILS 1.7 %; HEMATOCRIT 27.2 % (37.0-47.0); HEMOGLOBIN 8.6 gm/dL (12.0-15.0); MCH 21.3 pg (26.0-34.0); MCHC 31.4 g/dL (28.0-37.0); MCV 67.9 fL (80.0-100.0); MPV 6.9 fl. (7.2-11.1); NUCLEATED RBCS 0 /100WBC; PLATELET COUNT* 399 thou/uL (150-400); POLYS 65.2 %; RBC 4.01 mil/uL (4.20-5.00); RDW-CV 17.8 % (10.5-14.5); WBC 5.5 thou/uL (4.0-11.0)
[2021-12-03 12:10] LABS: CALCIUM 7.9 mg/dL (8.5-10.1); CREATININE 0.8 mg/dL (0.6-1.3); POTASSIUM 4.3 mmol/L (3.5-5.1)
[2021-12-03 12:15] LABS: ALBUMIN 2.9 g/dL (3.4-5.0); TOTAL BILIRUBIN 0.1 mg/dL (<0.1-1.0); TOTAL PROTEIN 6.2 g/dL (6.4-8.2)
[2021-12-03 12:28] LABS: ANISOCYTOSIS 2+; HYPOCHROMASIA 3+; MICROCYTES 2+
--- NOTE | 2021-12-03 13:13 | EKG ---
[place] [address] ELECTROCARDIOGRAM REPORT Name: STEPHANIE LONGO CHRIST Room: [facility]#: [id number] Admission: 12/03/21 Attend Phys: Discharge: Date of : 81 Date of Service: 12/03/21 1138 Report #: [id number] THIS REPORT FOR: //name// [facility] ED Test Date: 2021-12-03 Test Time: 11:38:14 Pat Name: STEPHANIE LONGO Department: Room: Gender: F Optical Instruments Supervisor: MAAME : 1985 Requested By: Aryan Nickerson Order Number: [id number] MD: Agustin Hewitt Measurements Intervals [place] Rate: 71 P: 39 MD: 200 QRS: 9 QRSD: 105 T: -8 QT: 396 QTc: 431 Interpretive Statements Sinus rhythm Low voltage, precordial leads Borderline T abnormalities, diffuse leads Compared to ECG 09/26/2020 21:47:16 Low QRS voltage now present Possible ischemia no longer present T-wave abnormality still present Electronically Signed On 12-03-2021 13:13:51 SENIOR STEREO COMPILER TEAM LEAD by Agustin Hewitt [email or web address] <ELECTRONICALLY SIGNED> By: Agustin Hewitt MD, FAC 12/03/21 1313 1138 1138 Agustin Hewitt MD, [facility] /EPI
[2021-12-03 13:30] VITALS: BP 118/64
== END 2021-12-03 13:37 | disposition home or self-care (01) ==
LOC: M.ERS 11:14
PROVIDERS: Family Medicine
DX: S16.1XXA Strain of muscle, fascia and tendon at neck level, initial encounter (principal); S00.83XA Contusion of other part of head, initial encounter; R55 Syncope and collapse; J45.909 Unspecified asthma, uncomplicated; I10 Essential (primary) hypertension; F31.9 Bipolar disorder, unspecified; E66.9 Obesity, unspecified; F17.210 Nicotine dependence, cigarettes, uncomplicated; Z87.42 Personal history of other diseases of the female genital tract; Z98.51 Tubal ligation status; Z68.41 Body mass index [BMI] 40.0-44.9, adult; Z79.899 Other long term (current) drug therapy; Z79.2 Long term (current) use of antibiotics; Z88.1 Allergy status to other antibiotic agents; Z88.0 Allergy status to penicillin; W19.XXXA Unspecified fall, initial encounter; Y93.89 Activity, other specified; Y92.091 Bathroom in other non-institutional residence as the place of occurrence of the external cause; Y99.8 Other external cause status

== ENCOUNTER 2021-12-18 18:37 | Emergency (ER) | payer OTHER ==
[~2021-12-18] VITALS: Ht 172.7 cm; Wt 113.4 kg
[2021-12-18] MEDS ORDERED: HYDROCODON-ACE1 EAC7 PO (18:54)
[2021-12-18 19:50] VITALS: BP 129/75
== END 2021-12-18 19:50 | disposition home or self-care (01) ==
LOC: M.ERS 18:37
DX: S30.0XXA Contusion of lower back and pelvis, initial encounter (principal); S80.01XA Contusion of right knee, initial encounter; M79.602 Pain in left arm; M79.601 Pain in right arm; J45.909 Unspecified asthma, uncomplicated; I10 Essential (primary) hypertension; F31.9 Bipolar disorder, unspecified; F17.210 Nicotine dependence, cigarettes, uncomplicated; Z86.711 Personal history of pulmonary embolism; Z98.51 Tubal ligation status; Z79.899 Other long term (current) drug therapy; Z88.1 Allergy status to other antibiotic agents; Z88.0 Allergy status to penicillin; Z87.42 Personal history of other diseases of the female genital tract; W10.8XXA Fall (on) (from) other stairs and steps, initial encounter; Y93.89 Activity, other specified; Y92.038 Other place in apartment as the place of occurrence of the external cause; Y99.8 Other external cause status

== ENCOUNTER 2022-01-08 01:51 | Emergency (ER) | payer OTHER ==
[~2022-01-08] VITALS: Ht 172.7 cm; Wt 122.5 kg
[2022-01-08 04:02] VITALS: BP 132/78
== END 2022-01-08 04:02 | disposition home or self-care (01) ==
LOC: M.ERS 01:51
DX: S83.92XA Sprain of unspecified site of left knee, initial encounter (principal); S33.5XXA Sprain of ligaments of lumbar spine, initial encounter; S76.212A Strain of adductor muscle, fascia and tendon of left thigh, initial encounter; J45.909 Unspecified asthma, uncomplicated; I10 Essential (primary) hypertension; F31.9 Bipolar disorder, unspecified; F17.210 Nicotine dependence, cigarettes, uncomplicated; Z98.51 Tubal ligation status; Z87.42 Personal history of other diseases of the female genital tract; Z98.890 Other specified postprocedural states; Z86.711 Personal history of pulmonary embolism; Z79.899 Other long term (current) drug therapy; Z88.1 Allergy status to other antibiotic agents; Z88.0 Allergy status to penicillin; W01.0XXA Fall on same level from slipping, tripping and stumbling without subsequent striking against object, initial encounter; Y93.89 Activity, other specified; Y92.89 Other specified places as the place of occurrence of the external cause; Y99.8 Other external cause status